=== PATIENT | female | born 1980 | race Caucasian/White ===

== ENCOUNTER 2023-09-01 14:07 | Outpatient (CLI) | payer BC, SELFPAY ==
--- NOTE | ~2023-09-01 | MM_ITS ---
EXAMINATION: MM screening alberto BI w rip HISTORY: Screening TECHNIQUE: Craniocaudal and mediolateral oblique 3-D tomosynthesis images were obtained and synthetic 2-D images were generated. CAD analysis was submitted and interpreted. COMPARISON: No prior mammogram is available for comparison at this institution. BREAST PARENCHYMAL COMPOSITION: Dense: The breasts are heterogeneously dense, which may obscure small masses FINDINGS: There is no evidence of suspicious mass, calcification, or architectural distortion to sugg est malignancy in either breast. There has been no suspicious interval change. IMPRESSION: 1. No mammographic evidence of malignancy. 2. Recommend routine screening mammography in one year. BI-RADS Category 1: Negative Reviewed, dictated and finalized at location B.
== END 2023-09-01 14:08 | disposition home or self-care (01) ==
PROVIDERS: PCP Family Medicine; Visit Provider Obstetrics & Gynecology
DX: Z12.31 Encounter for screening mammogram for malignant neoplasm of breast (principal)
CPT/HCPCS: 77063; 77067

== ENCOUNTER 2024-10-10 15:34 | Outpatient (CLI) | payer BC, SELFPAY ==
--- NOTE | ~2024-10-10 | MM_ITS ---
EXAMINATION: MM screening alberto BI w rip HISTORY: Screening TECHNIQUE: Craniocaudal and mediolateral oblique 3-D tomosynthesis images were obtained and synthetic 2-D images were generated. CAD analysis was submitted and interpreted. COMPARISON: 09/01/2023 BREAST PARENCHYMAL COMPOSITION: Dense: The breasts are heterogeneously dense, which may obscure small masses FINDINGS: There are multiple small low-density masses primarily centered in the lower central aspect of the left breast, middle third. The right breast is stable without evidence for malignancy. IMPRESSION: 1. Small low-density masses of the left breast which are obscured by fibroglandular tissue. 2. Additional mammographic views and possible breast ultrasound are recommended. BI-RADS Category 0: Incomplete: Needs additional imaging evaluation. Reviewed, dictated and finalized at location A. IMPRESSION: 1. Small low-density masses of the left breast which are obscured by fibrogland ular tissue. 2. Additional mammographic views and possible breast ultrasound are recommended . BI-RADS Category 0: Incomplete: Needs additional imaging evaluation.
--- OUTSIDE RECORDS SUMMARY | 2024-10-10 15:39 | XMS_ITS | Clinical Summary ---
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 Gender Identity Not on file Sexual Orientation Not on file Plan of Treatment Health Maintenance Due Date Last Done Comments Cervical Cancer Screening Pa p Smear (Age 30 to 64) Every 3 Years 1982 Annual Physical 1985 Hepatitis C 2000 DTaP, Tdap and Td Vaccines ( 1 - Tdap) 2001 Hepatitis B Vaccines (1 of 3 - 19+ 3-dose series) 2001 Cervical Cancer Screening Pa p with HPV Testing (Age 30 to 64) Every 5 Years 2012 Cervical Cancer Screening with HPV 2012 Mammogram Screening 2022 COVID-19 Vaccine (2023-2 5 season) 2023 HPV Vaccines Aged Out No longer eligi ble based on patient's age to complete this topic Meningococcal B Vaccine Aged Out No l onger eligible based on patient's age to complete this topic Meningococcal Vaccine Aged Out No sury russell eligible based on patient's age to complete this topic Pneumococcal Vaccine: Pediat rics (0 to 5 Years) and At-Risk Patients (6 to 49 Years) Aged Out No longer eligible b ased on patient's age to complete this topic RSV Immunizations Under 20 Months Aged Out No longer eligible based on patient's age to complete this topic
--- OUTSIDE RECORDS SUMMARY | 2024-10-10 15:39 | XMS_ITS | Clinical Summary ---
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 Name Role Phone Archie Hoyos Primary Care Provider [phone] Allergies Active Allergy Reactions Criticality Noted Date Comments Amoxicillin-Pot Clavulanate Other (see comments) 09/05/2024 Augmentin Azithromycin Diarrhea,Nausea And Vomiting Low 01/25/2019 Ciprofloxacin Other (see comments) Low 01/25/2019 Other Reaction(s): Not available Puffy eyes Puffy eyes Puffy eyes Medications ALPRAZolam XR (XANAX XR) 1 MG 24 hr tablet Take 1 mg by mouth 1 (one) time each day 02/26/2021 Active cetirizine (ZyrTEC) 10 MG tablet Take 1 tablet by mouth 1 (one) time each day in the morning Active levothyroxine (SYNTHROID, LEVOTHROID) 25 MCG tablet Take 25 mcg by mouth 1 (one) time each day 09/29/2023 Active Encounters Date Type Department Care Team Description 10/04/2024 Documentation Only [facility] management, [facility] [address] [facility] [address] [place] [address] Gio Noyola DO 09/05/2024 2:30 PM CDT Office Visit [facility] [address] [facility] [address] [place] [address] Gio Noyola DO Nephrolithiasis (Primary Dx); Angiomyolipoma of left kidney; Other specified hypothyroidism 09/05/2024 Refill [facility] [place], [facility] [address] [facility] [address] [place] [id number] Marquita Novak CMA from Last 3 Months Social History Tobacco Use Types Packs/Day Years Used Date Smoking Tobacco: Never Assessed Comments Unknown Sex and Gender Information Value Date Recorded Sex Assigned at Not on file Legal Sex Female 2:07 PM EST Gender Identity Not on file Sexual Orientation Not on file Last Filed Vital Signs Vital Sign Reading Time Taken Comments Blood Pressure 96/70 09/05/2024 3:16 PM CDT Pulse 86 09/05/2024 3:16 PM CDT Temperature - - Respiratory Rate 20 09/05/2024 3:16 PM CDT Oxygen Saturation 98% 09/05/2024 3:16 PM CDT Inhaled Oxygen Concentration - - Weight 55.8 kg (123 lb) 09/05/2024 3:16 PM CDT Height 157.5 cm (5' 2) 09/05/2024 3:16 PM CDT Body Mass Index 22.5 09/05/2024 3:16 PM CDT Plan of Treatment Upcoming Encounters Date Type Department Care Team (Late st Contact Info) Description 11/14/2024 12:15 PM CDT Office Visit [facility], [facility] [address] [facility] [address] [place] [phone] Gio Noyola, [address] [facility] [address] [place] [address] Health Maintenance Due Date Last Done Comments Hepatitis B Vaccine (1 of 3 - 19+ 3-dose series) 2001 Influenza Vaccine (#1) 2024 9, 02/18/2018, 03/23/2017 Pneumococcal Vaccine: Peds ( 0 to 5 Years) and At-Risk Patients (6 to 49 Years) Aged Out No longer eligi ble based on patient's age to complete this topic Insurance [facility] Care Teams Multi Needle Machine Operator Relationship Specialty Start Date End Date Archie Hoyos PA [address] [place] [id number] PCP - General Physician [facility] 04/07/24
--- OUTSIDE RECORDS SUMMARY | 2024-10-10 15:39 | XMS_ITS | Clinical Summary ---
Author Organization [facility] Address [address] [facility] [place] [address] Care Team Providers Care Program Professional Name Role Phone Tereza Feliciano MD Primary Care Provider [phone] Source Comments [facility],non-owned Affiliates and Associated Physician Practices is amultiple site organization consisting of ambulatory clinics and hospital sitesin [place], [place], [place] and [place]. This disclosure is being madepursuant to the Care Everywhere program and may not contain all information available regarding this patient. Last updated 17.[facility] Allergies Active Allergy Reactions Criticality Noted Date Comments Azithromycin Diarrhea,Nausea and/or Vomiting Low Ciprofloxacin Other Low 01/25/2019 Puffy eyes Medications * Be aware that medications may not be up to date on this document. Alwaysverify current medications with the patient. escitalopram (LEXAPRO) 20 MG tablet Take 20 mg by mouth once daily 2 9 Active hydroxychloroqu ine (PLAQUENIL) 200 MG tablet Take 200 mg by mouth 2 times daily 1 9 Active levothyroxine (SYNTHROID) 50 MCG tablet Take 50 mcg by mouth once daily Active oxyCODONE-aceta minophen (PERCOCET) 5-325 MG tablet oxycodone-acetam inophen 5 mg-325 mg tablet 9 Active doxycycline hyclate (VIBRAMYCIN) 100 MG capsule Take 100 mg by mouth 2 times daily Active fluocinonide (LIDEX) 0.05 % solution Apply to affected area 2 times daily Active triamcinolone acetonide (KENALOG) 0.1 % ointment Apply to affected area 3 times daily Active pregabalin (LYRICA) 25 MG capsuleIndicati ons:Fibromyalgi a Take 1 capsule by mouth 3 times daily 90 capsule 5 9 Active Additional Information Patient taking differently: 100 mgOral2 TIMES DAILY, Reported on 05/31/2019 Active Problems Problem Noted Date Diagnosed Date Glucose intolerance 05/31/2019 Low vitamin B12 level 05/31/2019 Small fiber neuropathy 05/31/2019 Paresthesia 01/28/2019 Radicular pain of thoracic region 01/28/2019 Fibromyalgia 01/28/2019 Systemic lupus erythematosus 01/28/2019 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 (F LUZONE; FLULAVAL; FLUARIX; AFLURIA QUADRIVALENT; 6MO+), 0.5 ML (IIV4) 01/12/2019 Social History Tobacco Use Types Packs/Day Years Used Date Smoking Tobacco: Never Smokeless Tobacco: Never Alcohol Use Standard Drinks/Week Comments Never 0 (1 standard drink = 0.6 oz pur e alcohol) AUDIT-C Answer Date Recorded Frequency of Alcohol Consumption Never 01/25/2019 Average Number of Drinks Not on file 019 Frequency of Binge Drinking Not on file 01/04 Comments No Sex and Gender Information Value Date Recorded Sex Assigned at Not on file Legal Sex Female 11:47 AM CDT Gender Identity Not on file Sexual Orientation Not on file Last Filed Vital Signs Vital Sign Reading Time Taken Comments Blood Pressure 101/71 05/31/2019 11:16 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 Pulse 98 05/31/2019 11:16 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 Temperature - - Respiratory Rate - - Oxygen Saturation 98% 05/31/2019 11:16 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 Inhaled Oxygen Concentration - - Weight 51.3 kg (113 lb) 05/31/2019 11:16 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 Height 157.5 cm (5' 2) 05/31/2019 11:16 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 Body Mass Index 20.67 05/31/2019 11:16 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 Plan of Treatment Health Maintenance Due Date Last Done Comments LIPID TESTING 1982 MAMMOGRAM 1982 HIV SCREENING 1997 HEPATITIS C SCREENING 11/19/2000 DTAP/TDAP/TD VACCINES (1 - Tdap) 2001 HEPATITIS B VACCINE (1 of 3 - 19+ 3-dose series) 2001 COVID-19 VACCINE (1 - 2023-2 5 season) 2023 DEPRESSION SCREENING 04/05/2024 INFLUENZA VACCINE (#1) 2024 01/12/2019 ZOSTER VACCINE (1 of 2) 2032 HIB VACCINE Aged Out No longer eligi ble based on patient's age to complete this topic HPV VACCINE Aged Out No longer eligi ble based on patient's age to complete this topic MENINGOCOCCAL (Group B) VACC INE SHARED DECISION-MAKING Aged Out No longer eligibl e based on patient's age to complete this topic MENINGOCOCCAL GROUPS A/C/Y/W VACCINE Aged Out No longer eligible b ased on patient's age to complete this topic PNEUMOCOCCAL VACCINE Aged Out No long er eligible based on patient's age [place] [address] [facility] Address: [facility] [address] [place] [address] [place] [address] [facility] Care Teams Program Professional Relationship Specialty Start Date End Date Tereza Feliciano MD [facility] [place] [address] PCP - General 01/25/19
--- OUTSIDE RECORDS SUMMARY | 2024-10-10 15:39 | XMS_ITS | Data Portability ---
Author Organization [facility] [employer], Main Office Address [address] [place] [address] Assessment Encounter Date Assessment Date Assessment LastModified by Organization Details LastModified Time 09/07/2024 09/07/2024 D/w pt about her findings and [place] Explained about different options for pt. Pt declined for any SSRI/SNRI for her anxiety. Meds as directed. Advised pt to talk with close friend/family member on a regular basis. Educated pt about alarming symptoms to monitor at home and call us back or get checked in ED in that case. Pt verbalized understanding it. Offered to refer to Psych/counsellor ; but pt declined. F/u as directed. [email or web address] Not available 09/07/2024 12:48:30 Plan of Treatment Reminders Order Date Submit Date Provider Last Modified By Organization Details Last Modified Time Details Appointments Physical/ Annual Wellness 30 2024 10:30A Alek Chung MD Not available Not available Not available Lab drug screen, urine 2024 025 [facility] ([facility]), [address] [place], [address], 04/07/2024 17:40:20 Referral urologist referral - Please call patient to schedule an appointme nt Thank you. 2024 025 [email or web address] Gio Noyola DO, [address] [facility], [address], [place], [address], 05/04/2024 08:43:13 Procedures None recorded. Surgeries None recorded. Imaging US, kidney - left kidney mass removed Fabian velez ,2019 [email or web address] [place] [address] Imaging, [address], [address] [address], [place], [address], 10/19/2023 10:21:13 Medication Orders triamcino lone acetonide 0.1 % topical cream 2024 025 [facility], [address] [place] [address], [id number], 09/07/2024 12:43:08 amoxicill in 500 mg capsule 2024 025 [facility], [address] [place] [address], [id number], 09/07/2024 12:43:08 alprazola m ER 1 mg tablet,ex tended release 24 hr 2024 025 [facility], [address] [place] [address], [id number], 09/07/2024 12:43:08 fluticaso ne propionat e 50 mcg/actua tion nasal spray,[facility] 2024 025 [facility], [address] [place] [address], [id number], 07/06/2024 12:08:42 albuterol sulfate HFA 90 mcg/actua tion aerosol inhaler 2024 025 [facility], [address] [place] [address], [id number], 04/06/2024 11:52:12 clindamyc in HCl 150 mg capsule 2024 025 [email or web address] [address] [place] [address], [id number], 07/06/2024 11:53:19 alprazola m ER 1 mg tablet,ex tended release 24 hr 2024 025 [facility] #3259, [address] [place], [address], 04/06/2024 11:48:48 cetirizin e 10 mg tablet 2023 [facility], [address] [place], [address], 01/05/2024 12:13:22 tamsulosi n 0.4 mg capsule 2023 [facility] [address] [place], [address], 04/06/2024 11:41:01 amoxicill in 875 mg-potass ium clavulana te 125 mg tablet 2023 [facility] [address] [place], [address], 04/06/2024 11:38:40 fluconazo le 150 mg tablet 2023 024 [email or web address], [address] [place], [address], 07/06/2024 11:53:27 alprazola m ER 1 mg tablet,ex tended release 24 hr 2023 024 [facility] [address] [place], [address], 10/05/2023 12:04:25 Patient TargetsNo targets recorded. Patient InstructionsNo instructions recorded. Reason for Referral Urologist Referral for Renal mass Please call patient to schedule an appointment Thank you. Referring Physician: Archie Hoyos, Family Medicine, Encounter Date: 04/06/2024 Results Created Date Observation Date Name Description Value Unit Range Abnormal Flag Note LastModifiedBy Organization Detail LastModifiedTime Result Notes None recorded. Problems Name Problem SNOMED Code Status Onset Date Resolution Date Notes Provider Name and Address Organization Details Recorded Time Karmen thyroiditi s 99581871 Active 2018 Not Available [facility] 3 20:56:47 Depressive disorder 95505454 Active 2018 Not Available [facility] 3 20:56:47 Hypothyroi dism 18491820 Active 2018 Praneeth Chung MD [address], [address], [place], [address] , [employer] 5 12:18:29 History of calculus of kidney 823506574 Active 2018 Not Available [facility] 3 20:56:47 Anxiety 25268359 Active 2018 Not Available [facility] 3 20:56:47 Lichen planopilar is 15964342 Active 2018 Not Available [facility] 3 20:56:47 Hyperlipid emia 18223621 Active 2022 Tereza Feliciano MD [address], [address], [place], [address] , [employer] 3 12:12:38 Vitamin D deficiency 09273591 Active 2022 Tereza Feliciano MD [address], [address], [place], [address] , [employer] 3 12:14:01 Anxiety disorder 106074222 Active 2022 Tereza Feliciano MD [address], [address], [place], [address] , [employer] 3 11:59:56 Fatigue 66595429 Active 2022 Tereza Feliciano MD [address], [place], [address] , [employer] [facility] 3 12:25:05 Renal mass 604012037 Active 2023 PRASHANT Ellis [address], [address], [place], [address] , [employer] 4 12:02:07 Sinusitis 54606527 Active 2023 PRASHANT Ellis [address], [address], [place], [address] , [place] [facility] [place] [facility] 4 12:08:46 Kidney stone 24572262 Active 2023 PRASHANT Ellis [address], [address], [place], [address] , [place] [facility] [place] [facility] 4 12:11:07 Allergic rhinitis 45375891 Active 2023 PRASHANT Ellis [address], [address], [place], [address] , [employer] [place] [facility] [place] [employer] [facility] 4 12:12:49 Adult health examinatio n Active 2023 PRASHANT Ellis [address], [address], [place], [address] , [employer] [place] [facility] 4 12:22:57 Wheezing 01140978 Active 2024 PRASHANT Ellis [address], [address], [place], [address] , [employer] [place] [facility] [employer] [employer] 5 11:51:16 Seasonal allergy 096478196 Active 2024 Praneeth Chung MD [address], [address], [place], [address] , [employer] [place] [facility] [place] 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 5 12:28:44 Cellulitis of right foot 3597027579259 9105 Active 2024 Praneeth Chung MD [address] [address], [place], [address] , [facility] [employer] [facility] [employer] 5 12:33:44 Allergic disorder of skin 084041948 Active 2024 Praneeth Chung MD [address] [address], [place], [address] , [facility] [employer] [facility] [employer] 5 12:34:25 Notes:back, abdominal, groin , and leg pain Problem Notes None recorded. Procedures Surgical History Date Name Laterality Status Provider Name and Address Organization Details Recorded Time Date of Last Pap Smear completed Not Available [facility] 06/03/2022 20:56:00 excision of left kidney completed Not Available [facility] 06/03/2022 20:56:00 Imaging Results None recorded. Procedure Notes None recorded. Medical Equipment None Reported. Allergies Allergen ID Allergen Name Allergen Category Reaction Reaction Severity Criticality Documentation Date Start Date Code Code System Note Provider Name and Address Organization Details Recorded Time 52778 ciproflox acin medicatio n Not available Not available Not available 06/03/2022 2551 RxNorm Not Available [facility] 3 20:57:37 37174 Augmentin medicatio n other Not available Not available 04/06/2024 41272 2 RxNorm Sever e Anxie ty and sleep lessn ess Hazel Ronquillo RN [facility], [facility] [employer] 5 11:40:17 42002 clavulani c acid Not available insomnia moderate Not available 09/07/2024 36367 RxNorm Praneeth Chung MD [address] [address], [place], [address], [facility] [employer] [facility] [employer] 5 12:43:35 Medications Name Sig Start Date Stop Date Status Note LastModified by Organization Details LastModified Time cyclobenzap rine 10 mg tablet 09/05 completed Not Available Not Available Not Available amoxicillin 500 mg capsule TAKE 1 CAPSULE BY MOUTH THREE TIMES A DAY DIRECTED FOR 7 DAYS active Not Available Not Available No t Available methocarbam ol 500 mg tablet 09/05 completed Not Available Not Available Not Available cetirizine 10 mg tablet TAKE 1 TABLET BY MOUTH EVERY DAY IN THE MORNING active Not Available Not Available No t Available fluconazole 150 mg tablet TAKE 1 TABLET BY MOUTH EVERY 72 HOURS FOR 9 DAYS 07/06 completed Not Available Not Available Not Available hydrocodone 5 mg-acetamin ophen 325 mg tablet 07/09 completed Not Available Not Available Not Available clindamycin HCl 150 mg capsule Take 1 capsule every 6 hours by oral route for 10 days. 07/06 completed Not Available Not Available Not Available metronidazo le 500 mg tablet 01/12 completed Not Available Not Available Not Available prochlorper azine maleate 10 mg tablet 08/12 completed Not Available Not Available Not Available tramadol 50 mg tablet 08/12 completed Not Available Not Available Not Available triamcinolo ne acetonide 0.1 % topical cream APPLY THIN COAT TO AFFECTED AREA TWICE A DAY active Not Available Not Available No t Available ondansetron 8 mg disintegrat ing tablet TAKE 1 TABLET BY MOUTH 3 TIMES A DAY NEEDED 06/25 completed Not Available Not Available Not Available levothyroxi ne 25 mcg tablet TAKE 1/2 TABLET (12.5MG) ONCE DAILY active Not Available Not Available No t Available ketorolac 10 mg tablet 08/12 completed Not Available Not Available Not Available oxycodone-a cetaminophe n 5 mg-325 mg tablet TAKE 1-2 TABLETS EVERY 4-6 HOURS BY MOUTH. 09/05 completed Not Available Not Available Not Available tamsulosin 0.4 mg capsule TAKE 1 CAPSULE BY MOUTH EVERY DAY IN THE EVENING FOR 30 DAYS 04/06 completed Not Available Not Available Not Available dicyclomine 20 mg tablet 08/12 completed Not Available Not Available Not Available amitriptyli ne 10 mg tablet 09/05 completed Not Available Not Available Not Available baclofen 10 mg tablet 10/26 completed Not Available Not Available Not Available benzonatate 100 mg capsule TAKE 1 CAPSULE BY MOUTH EVERY 8 HOURS NEEDED 06/25 completed Not Available Not Available Not Available doxycycline monohydrate 100 mg capsule 09/05 completed Not Available Not Available Not Available levothyroxi ne 50 mcg tablet TAKE 1 TABLET (50 MCG TOTAL) BY MOUTH GASKET FORMER BEFORE BREAKFAST 11/27 completed Not Available Not Available Not Available cephalexin 500 mg capsule 01/12 completed Not Available Not Available Not Available oseltamivir 75 mg capsule TAKE 1 CAPSULE BY MOUTH EVERY 12 HOURS FOR 5 DAYS 06/25 completed Not Available Not Available Not Available ferrous sulfate 325 mg (65 mg iron) tablet TAKE 1 TABLET BY ORAL ROUTE EVERY DAY 09/05 completed Not Available Not Available Not Available docusate sodium 100 mg capsule TAKE 1 CAP BY MOUTH 2 TIMES A DAY NEEDED 09/05 completed Not Available Not Available Not Available gabapentin 300 mg capsule 09/05 completed Not Available Not Available Not Available [place] 10 mg-325 mg tablet Take 1 tablet every 4 hours by oral route. 01/12 completed Not Available Not Available Not Available ergocalcife rol (vitamin D2) 1,250 mcg (50,000 unit) capsule Take 1 capsule every week by oral route. 08/26 completed Not Available Not Available Not Available hydroxychlo roquine 200 mg tablet TAKE 1 TABLET BY MOUTH TWICE A DAY 09/05 completed Not Available Not Available Not Available fluocinonid e 0.05 % topical solution APPLY BY TOPICAL ROUTE 2 TIMES EVERY DAY TO THE SCALP 09/05 completed Not Available Not Available Not Available levofloxaci n 500 mg tablet TAKE 1 TABLET BY MOUTH EVERY DAY 04/13 completed Not Available Not Available Not Available oxycodone-a cetaminophe n 7.5 mg-325 mg tablet 01/12 completed Not Available Not Available Not Available methylpredn isolone 4 mg tablets in a dose pack 01/12 completed Not Available Not Available Not Available albuterol sulfate HFA 90 mcg/actuati on aerosol inhaler INHALE 2 PUFFS EVERY 8 HOURS BY INHALATIO N ROUTE. active Not Available Not Available No t Available clobetasol 0.05 % scalp solution PLEASE SEE ATTACHED FOR DETAILED DIRECTION S active Not Available Not Available No t Available ondansetron 4 mg disintegrat ing tablet 09/05 completed Not Available Not Available Not Available fluticasone propionate 50 mcg/actuati on nasal spray,suspe nsion SPRAY 2 SPRAYS INTO EACH NOSTRIL EVERY DAY active Not Available Not Available No t Available naproxen 500 mg tablet 08/12 completed Not Available Not Available Not Available amoxicillin 875 mg-potassiu m clavulanate 125 mg tablet TAKE 1 TABLET BY MOUTH EVERY 12 HOURS FOR 10 DAYS 04/06 completed Not Available Not Available Not Available escitalopra m 10 mg tablet TAKE 1 TABLET BY MOUTH EVERY DAY 08/12 completed Not Available Not Available Not Available escitalopra m 20 mg tablet TAKE 1 TABLET BY MOUTH EVERY DAY 11/27 completed Not Available Not Available Not Available alprazolam ER 1 mg tablet,exte nded release 24 hr TAKE 1 TABLET BY MOUTH EVERY DAY NEEDED ONLY MUST LAST 30 DAYS. NO EARLY REFILL active Not Available Not Available No t Available Klor-Con M20 mEq tablet,exte nded release 08/12 completed Not Available Not Available Not Available nitrofurant oin monohydrate /macrocryst als 100 mg capsule 08/12 completed Not Available Not Available Not Available pregabalin 25 mg capsule 04/13 completed Not Available Not Available Not Available pregabalin 75 mg capsule 09/05 completed Not Available Not Available Not Available pregabalin 100 mg capsule TAKE 1 CAPSULE BY MOUTH TWICE A DAY 09/05 completed Not Available Not Available Not Available 09/07 completed Not Available Not Available Not Available cholecalcif kishor (vitamin D3) 50 mcg (2,000 unit) capsule TAKE 1 SOFTGEL BY MOUTH EVERY DAY 09/05 completed Not Available Not Available Not Available Flucelvax Quad 60 mcg (15 mcg x 4)/0.5 mL IM suspension PHARMACIS T ADM 0.5ML IM UTD 08/12 completed Not Available Not Available Not Available ID NOW COVID-19 Test Kit TEST DIRECTED TODAY 02/26 completed Not Available Not Available Not Available Vitals Date Recorded Body height Body mass index (BMI) Body weight Body temperature Heart rate Oxygen saturation Oxygen saturation in Arterial blood by Pulse oximetry Systolic And Diastolic Provider Name and Address Organization Details Last Updated DateTime 5 157.48 cm 22.9 kg/m2 74144.0 5 g 98 [degF] 91 /min 99 % 99 % 112/86 mm[Hg] Hazel Ronquillo RN [place] [employer] 5 11:42:38 Date Recorded Body height Body mass index (BMI) Body weight Body temperature Oxygen saturation Oxygen saturation in Arterial blood by Pulse oximetry Heart rate Systolic And Diastolic Provider Name and Address Organization Details Last Updated DateTime 5 157.48 cm 23.4 kg/m2 93953.8 2 g 97.3 [degF] 98 % 98 % 90 /min 122/88 mm[Hg] Amy [place]as Jaswinder [facility] [employer] [facility] 5 11:55:54 Date Recorded Body height Body mass index (BMI) Body weight Body temperature Oxygen saturation Oxygen saturation in Arterial blood by Pulse oximetry Heart rate Systolic And Diastolic Provider Name and Address Organization Details Last Updated DateTime 5 157.48 cm 22.8 kg/m2 09565.2 5 g 97.9 [degF] 96 % 96 % 99 /min 126/80 mm[Hg] Pastora Garay RN [facility] [employer] [facility] 5 12:24:23 Date Recorded Body height Body mass index (BMI) Body weight Body temperature Heart rate Oxygen saturation Oxygen saturation in Arterial blood by Pulse oximetry Respiratory rate Systolic And Diastolic Provider Name and Address Organization Details Last Updated DateTime 4 157.48 cm 20.7 kg/m2 36443.9 4 g 97.7 [degF] 109 /min 99 % 99 % 16 /min 112/82 mm[Hg] Hazel Ronquillo RN [facility] [employer] [facility] 4 11:53:17 Date Recorded Body height Body mass index (BMI) Body weight Body temperature Heart rate Respiratory rate Oxygen saturation Oxygen saturation in Arterial blood by Pulse oximetry Systolic And Diastolic Provider Name and Address Organization Details Last Updated DateTime 4 157.48 cm 21 kg/m2 62853.1 2 g 98.5 [degF] 103 /min 16 /min 98 % 98 % 102/72 mm[Hg] Hazel Ronquillo RN [facility] [employer] [facility] 4 11:58:31 Social History Question Answer Notes LastModified by Organizat ion Details LastModified Time Tobacco Smoking Status Never Smoker Not Available [employer] 06/03/2022 20:55:57 What Is Your Level Of Caffeine Consumption? Occasional One (12 Oz) Can Coke Or Pepsi Information not available 09/07/2024 In The 14 Days Before Symptom Onset, Have You Had Close Contact With A Laboratory-confir med COVID-19 While That Case Was Ill? No [id number] Information not available 06/03/2022 In The 14 Days Before Symptom Onset, Have You Had Close Contact With A Person Who Is Under Investigation For COVID-19 While That Person Was Ill? No [id number] Information not available 06/03/2022 What Is Your Relationship Status? [id number] Information not available 06/03/2022 Do You Use Your Seat Belt Or Car Seat Routinely? Yes [id number] Information not available 06/03/2022 Has Tobacco Cessation Counseling Been Provided? No Information not available 09/07/2024 Have You Recently Traveled Abroad? No [id number] Information not available 06/03/2022 Sex: Female Functional Status Question Answer Note LastModified by Organizat ion Details LastModified Time Do you or have you ever used any other forms of tobacco or nicotine? No Information not available 09/07/2024 What is your level of alcohol consumption? None [id number] Information not available 06/03/2022 What is your exercise level? Occasional [id number] Information not available 06/03/2022 Mental Status None recorded. Family History Relationship Description Onset Age of this Age Resolved Age Notes LastModified by Organization Details LastModified Time Mother Malignant lymphoma [id number] Not available 06/03/2022 20:56:02 Father Low blood pressure [id number] Not available 06/03/2022 20:56:02 Medical History Condition Response KIDNEY DISEASE Y OTHER # 1 Y ANXIETY DISORDER Y Gynecological History Statement/Question Response Abnormal Pap N Date of Last Pap Smear 12/25/2020 Current Control Method None Age at Menarche 16 Date of LMP 11/29/2020 Obstetrics History GPAL:G 2 P 2 0 0 2 Type Value Full Term 2 Living 2 Total 2 Immunizations Vaccine Type Date Status Note Provider Nam e and Address Organization Details Recorded Time Influenza, split virus, quadrivalent, PF 9 completed Not Available [employer] 06/03/2022 20:57:36 Influenza, MDCK, quadrivalent, preservative 8 completed Praneeth Chung MD [address], [address], [place], [address], [place] [employer] 09/07/2024 12:44:53 Influenza, split virus, trivalent, PF 7 completed Praneeth Chung MD [address], [address], [place], [address], [place] [employer] 09/07/2024 12:44:53 Past Encounters Encounter ID Performer Location Encounter Start Date Encounter Closed Date Diagnosis/Indication Diagnosis SNOMED-CT Code Diagnosis ICD10 Code Diagnosis Note [id number] Tereza Feliciano MD [facility] [address] , [place] [address] 11/27/2020 00:00:00 11/27/2020 20:36:57 [id number] [facility] _WALDO_ IGRATION_ DEFAULT_1 _1 , 12/25/2020 00:00:00 12/25/2020 11:23:35 [id number] Tereza Feliciano MD [facility] [address] [place] [address] 02/26/2021 00:00:00 02/26/2021 20:14:05 [id number] Tereza Feliciano MD [facility] [address] [place] [address] 07/09/2021 00:00:00 07/09/2021 20:34:47 [id number] Tereza Feliciano MD [facility] [address] [place] [address] 08/26/2021 00:00:00 08/26/2021 12:01:53 [id number] Tereza Feliciano MD [facility] [address] [place] [address] 02/25/2022 00:00:00 02/25/2022 20:21:54 [id number] Tereza Feliciano MD [facility] [address] [place] [address] 06/25/2022 11:58:41 06/25/2022 12:18:49 Anxiety 80907836 F41.9 Continue alprazolam ER call for refills. Hyperlipidemia 13385300 E78.5 Vitamin D deficiency 347 26856 E55.9 [id number] Tereza Feliciano MD [facility] [address] [facility] [place] [address] 09/25/2022 11:47:23 09/25/2022 12:03:43 Anxiety disorder 709356733 F41.9 Call for refills of alprazolam . Hyperlipidemia 76673822 E78.5 Reviewed labs and gave pt diet instructio n pamphlet [id number] Tereza Feliciano MD [facility] [place] [address] [address] [address] 12/28/2022 12:08:26 12/28/2022 12:28:54 Fatigue 24124331 R53.83 Anxiety 25555579 F41.9 Continue alprazolam ER call for refills. [id number] Tereza Feliciano MD [facility] [address] [place] [address] 04/06/2023 14:21:01 04/06/2023 15:04:57 Anxiety 14786245 F41.9 Hyperlipidemia 18124694 E78.5 Hypothyroidism 95762638 E03.9 Depressive disorder 3548 9007 F32.A Karmen thyroiditis 21 594946 E06.3 Vitamin D deficiency 347 33194 E55.9 [id number] Tereza Feliciano MD [facility] [address] [place] [address] 07/06/2023 11:21:53 07/06/2023 11:53:23 Anxiety 98958259 F41.9 Depressive disorder 3548 9007 F32.A Karmen thyroiditis 21 263135 E06.3 Hyperlipidemia 86156110 E78.5 Hypothyroidism 84697937 E03.9 Lichen planopilaris 6454 0004 L66.1 Vitamin D deficiency 347 51458 E55.9 [id number] Praneeth Chung MD [address] [place] [address] 10/05/2023 11:46:41 10/05/2023 12:08:22 Anxiety 61728659 F41.9 Renal mass 362315787 N28 .89 Depressive disorder 3548 9007 F32.A Karmen thyroiditis 21 880956 E06.3 History of calculus of kidney 952653981 Z87.442 Hyperlipidemia 69154498 E78.5 Hypothyroidism 48477003 E03.9 Vitamin D deficiency 347 11785 E55.9 [id number] Praneeth Chung MD [address] , [place] [address] 01/05/2024 11:51:31 01/05/2024 12:15:17 Sinusitis 58619098 J32.9 Kidney stone 00573484 N2 0.0 left Allergic rhinitis 246013 04 J30.9 Adult heal th examination 195005475 Z00.00 Anxiety 37372086 F41.9 Depressive disorder 3548 9007 F32.A Hyperlipidemia 16923312 E78.5 Hypothyroidism 25777228 E03.9 Vitamin D deficiency 347 13293 E55.9 [id number] Praneeth Chung MD [address] [address] 04/06/2024 11:28:11 04/06/2024 12:24:21 Anxiety 12890647 F41.9 Long-term current use of benzodiazepine 3986759754 5505721 Z79.899 Sinusitis 12297316 J32.9 Wheezing 37129495 R06.2 Renal mass 774916337 N28 .89 Allergic rhinitis 453745 04 J30.9 [id number] Praneeth Chung MD [facility] [address] 07/06/2024 11:45:23 07/06/2024 12:14:31 Allergic rhinitis 82124419 J30.9 Anxiety 37931848 F41.9 Anxiety disorder 1986631 06 F41.9 Depressive disorder 3548 9007 F32.A Karmen thyroiditis 21 [id number] E06.3 Hyperlipidemia [id number] E78.5 Hypothyroidism 27150180 E03.9 Vitamin D deficiency 347 81440 E55.9 [id number] Praneeth Chung MD [facility]_[address] [address] 09/07/2024 12:14:20 09/07/2024 12:48:49 Anxiety disorder 138301184 F41.9 Seasonal allergy 4751295 04 J30.2 Hypothyroidism 19133743 E03.9 History of partial nephrectomy [id number] Z90.5 12/2018 Lichen kendal nus of scalp [id number] L43.9 Cellulitis of right foot [id number] 3939763 L03.115 Allergic d isorder of skin 192335232 L23.9 Health Concerns Section Related Observation LastModified by Organization Detai ls LastModified Time None Recorded Concern Status LastModified by Organization Details LastModified Time None Recorded Advance Directives Directive None Recorded Payers Insurance Date Sequence Insurance Name Policy Number Policy Castañeda Covered Member ID Castañeda Member ID Guarantor Name 09/06/2024 1 [facility] ([facility]) [id number] Shahid Carrillo [id number] Shanna Carrillo 02/25/2024 [facility] Shanna Carrillo SELF SELF Shanna Carrillo Notes Date Note Type Note Provider Name and Address Organization Details Recorded Time 10/05/2023 text/html Doing well PRASHANT Ellis [address], [place], [address], [employer] [facility] [employer] 10/28/2023 14:22:54 01/05/2024 text/html allergies acting up . PRASHANT Ellis [address], [place], [address], [employer] [facility] [employer] 01/27/2024 15:42:56 04/06/2024 text/html sinus pressure , no fever PRASHANT Ellis [address], [address], [place], [address], [facility] [employer] [facility] 04/11/2024 15:36:55 07/06/2024 text/html allergies acting up . PRASHANT Ellis [address], [address], [place], [address], [facility] [employer] [facility] 07/10/2024 11:05:08 09/07/2024 text/html Med refill, Willie 's pt + ACV: C/o rash over her Rt foot area for last 1 week. ? insect bite, denies any drainage from it, no fever/chills/n/v/d . Pt has Lichen planus of scalp and she is f/u with Derm for it. Needing refill on Alprazolam for her chronic anxiety. She is on it for last 7+ yrs and is doing well on the current dose. Pt denies any depression/mood swings/SI/HI. Pt has tried Lexapro & Zoloft in the past and she did not tolerate them and so she was started on Alprazolam by her previous PCP and she is doing much better since than. So pt doesn't want to do any changes in her regimen. Pt has seen Psych long time ago and she doesn't want to see them/counsellor for this.Pt is f/u with Nephro at [facility] for her Lt partial nephrectomy and they are doing labs for her too. Pt is f/u with Endo for her hypothyroidism. Praneeth Chung MD [address], [address], [place], [address], [facility] [employer] [facility] 09/07/2024 12:48:54 OBGyn Episode No OBEpisode recorded.
== END 2024-10-10 15:35 | disposition home or self-care (01) ==
LOC: ANHIMG 15:34
PROVIDERS: PCP Family Medicine; Visit Provider Obstetrics & Gynecology
DX: Z12.31 Encounter for screening mammogram for malignant neoplasm of breast (principal); R92.8 Other abnormal and inconclusive findings on diagnostic imaging of breast
CPT/HCPCS: 77063; 77067

== ENCOUNTER 2024-10-30 08:46 | Outpatient (CLI) | payer BC, SELFPAY ==
--- NOTE | ~2024-10-30 | MMUS_ITS ---
EXAMINATION: MM diagnostic alberto LT w rip, US breast LT complete HISTORY: Follow-up low density masses of the left breast TECHNIQUE: Additional 3-D tomosynthesis images of the left breast were performed and synthetic 2-D im ages were generated. CAD analysis was submitted and interpreted. High resolution complete left breast ultrasound was performed. COMPARISON: Comparison to multiple prior studies sequentially, with oldest reviewed study dated 08/31. BREAST PARENCHYMAL COMPOSITION: Dense: The breasts are heterogeneously dense, which may obscure small masses. FINDINGS: MAMMOGRAPHIC FINDINGS: There are small low-density masses persistent in the left breast inferiorly, mid breast. There are no suspicious calcifications or architectural distortion. ULTRASOUND: Complete US of all 4 quadrants of the left breast/s and retroareolar region was reviewed. At 2:00, 3 cm from the nipple there is a 3 mm cyst. At 3:00 in the subareolar location there is a 6 mm cyst. At 6:00, 1 cm from the nipple there is a 5 mm cyst. These likely correspond to the mammographic findings . IMPRESSION: 1. No evidence for malignancy in the left breast. Benign findings. 2. Routine yearly screening mammogram and regular clinical breast examination are recommended. BI-RADS Category 2: Benign finding(s). Reviewed, dictated and finalized at location B. IMPRESSION: 1. No evidence for malignancy in the left breast. Benign findings. 2. Routine yearly screening mammogram and regular clinical breast examination a re recommended. BI-RADS Category 2: Benign finding(s).
== END 2024-10-30 08:47 | disposition home or self-care (01) ==
LOC: MICIMG 08:48
PROVIDERS: PCP Family Medicine; Visit Provider Obstetrics & Gynecology
DX: N63.20 Unspecified lump in the left breast, unspecified quadrant (principal)
CPT/HCPCS: 76641; 77061; 77065; G0279